=== PATIENT | female | born 1960 | race Hispanic/Latino ===

== ENCOUNTER 2018-07-12 23:12 | Day surgery (SDC) | payer SELFPAY ==
[2018-07-12 23:41] LABS: Bilirubin Negative (Negative); Blood, Urine Small (Negative); Clarity CLEAR (Clear); Glucose, Urine (Dipstick) Negative (Negative); Leukocyte Trace (Negative); Nitrite Negative (Negative); Protein, Urine (Dipstick) Negative (Neg-Trace); Specific Gravity, Urine 1.006 (1.002-1.036); Urobilinogen 0.2 mg/dL (0.2-1.0); pH, Urine 7.5 (5.0-9.0)
[2018-07-12 23:42] LABS: Specific Gravity 1.006 (1.002-1.036)
[2018-07-12 23:44] LABS: Bacteria/HPF None Seen HPF (None Seen); Hyaline Casts/LPF 0-3 HYALINE CAST LPF (0-3 Hyaline); Pregnancy Test - Urine (BHCG) Negative (Negative); Squamous Epithelial None Seen HPF (0-3); WBC/HPF 0-3 HPF (0-3)
[2018-07-12 23:45] LABS: Pregu Control Background? CLEAR/WHITE (CLR/WHITE); Pregu Control Bar Appear? YES (CONTROL BAR)
[2018-07-13 00:14] LABS: #Eosinphils 0.1 thou/uL (0.0-0.7); #Lymphocytes 2.1 thou/uL (1.20-3.40); #Monocytes 0.7 thou/uL (0.11-0.59); #Neutrophils 9.1 thou/uL (1.40-6.50); %Lymphocytes 17.1 % (21.0-51.0); Hemoglobin 13.6 g/dL (12.0-16.0); Mean Corpuscular HGB CONC 33.7 g/dL (32.0-36.0); Mean Corpuscular Hemoglobin 28.6 pg (27.0-31.0); Mean Corpuscular Volume 84.7 fL (78.0-98.0); Mean Platelet Volume 7.6 fL (7.4-10.4); Platelet Count 160 thou/uL (130-400); Red Blood Cell (RBC) Count 4.75 mill/uL (4.20-5.40)
[2018-07-13 00:34] LABS: ALT (SGPT) 25 U/L (8-55); AST (SGOT) 21 U/L (5-34); Albumin 4.3 g/dL (3.5-5.0); Alkaline Phosphatase 171 U/L (40-150); Anion Gap 11 mmol/L (10-20); BUN (Urea Nitrogen) 11 mg/dL (9.8-20.1); Bilirubin, Total 0.6 mg/dL (0.2-1.2); Calc. Creatinine Clearance 0 mL/min (70-130); Calcium 9.2 mg/dL (7.8-10.44); Carbon Dioxide 26 mmol/L (22-29); Chloride 106 mmol/L (98-107); Estimated GFR-MDRD Greater than 90; Globulin 3.6 g/dL (2.4-3.5); Glucose 111 mg/dL (70-105); Potassium 3.5 mmol/L (3.5-5.1); Protein, Total 7.9 g/dL (6.0-8.3); Sodium 139 mmol/L (136-145)
[2018-07-13] MEDS ORDERED: Morphine 2 MG/ML SYRINGE ONE (03:44)
[2018-07-13] MEDS ORDERED: Sodium Chloride 0.9% 100 ML ONE (05:13)
[2018-07-13] MEDS ORDERED: Piperacillin/Tazobactam 3.375 GM VIAL ONE (05:13)
[2018-07-13] MEDS ORDERED: Ondansetron HCl/PF 4 MG/2 ML Vial ONE ×2 (05:13→13:27)
[2018-07-13] MEDS ORDERED: Bupivacaine HCl 0.5%/Epinephrine 1:200,000/PF 30 ml Vial ONE (06:47)
[2018-07-13] MEDS ORDERED: Ketorolac Tromethamine 30 MG/ML VIAL ONE ×2 (07:26→09:17)
[2018-07-13] MEDS ORDERED: Scopolamine 1.5 mg/72 hour Patch ONE (07:26)
[2018-07-13] MEDS ORDERED: Fentanyl 100 MCG/2 ML VIAL ONE ×4 (07:30→09:54)
--- NOTE | 2018-07-13 07:35 | HP ---
HISTORY OF PRESENT ILLNESS: A 58-year-old female, multimedia developer housewife, disabled due to knee problems , Macedonian speaking only, who presents to the emergency room with right lower quadrant pain. She has been having pain intermittently for 3-4 weeks. This became exquisitely more severe. She presented t o the emergency room and noted to have a white count of 12, hemoglobin 13. Comprehensive metabolic p rofile is essentially normal. She underwent a CAT scan of the abdomen and pelvis revealing changes c onsistent with appendicitis. She received Zosyn, IV fluids. ALLERGIES: None. TOBACCO: None. ALCOHOL: None. MEDICATIONS: Antihypertensives. PAST SURGICAL HISTORY: C-sections, hysterectomy, BSO. PAST MEDICAL HISTORY: Hypertension. REVIEW OF SYSTEMS: Ten point noncontributory. FAMILY HISTORY: Noncontributory. PHYSICAL EXAMINATION: VITAL SIGNS: Blood pressure 140/74, heart rate 76, respiratory rate 18. HEENT: Unremarkable. LUNGS: Clear to auscultation. CARDIAC: Regular rate and rhythm without murmur or gallop. ABDOMEN: Soft, tenderness in right lower quadrant with guarding, rebound. Mild tenderness in left l ower quadrant. Positive Rovsing. EXTREMITIES: Unremarkable. No ankle edema. LABORATORY: As noted above. ASSESSMENT AND PLAN: Acute appendicitis. I have recommended laparoscopic video appendectomy. Risk of infection, bleeding, visceral injury were explained. Possible open procedure, possible transfusio n discussed. She understands the risks and benefits. Questions answered.
--- NOTE | 2018-07-13 07:50 | CT ---
PRELIMINARY REPORT/[facility]/EMERGENTY AFTER-HOURS PROCEDURE Addendum created by Josiah Tello MD on 07/13/2018 4:57 AM Central Time ([place] & [place]) THIS REPORT CONTAINS FINDINGS THAT MAY BE CRITICAL TO PATIENT CARE. The findings were verbally commun icated via telephone conference with Dr. Mcintyre at 4:47 AM CDT on 07/13/2018. The findings were ac knowledged and understood. Initial Report created on 07/13/2018 4:33 AM Central Time ([place] & [place]) CT Abdomen and Pelvis With Intravenous Contrast EXAM DATE/TIME: 07/13/2018 3:11 AM CLINICAL HISTORY: 58 years old, female; Pain; Abdominal pain; Generalized; Patient HX: This is a 58 yo f who comes in c [facility] of diffuse abdominal pain. She states the pain has been going on for about 3 weeks and has got acutely worse last night. She states the pain is made worse with any sort of movement and improves somewhat with rest. She has tried otc medicines which have not helped. She was treated for u ti with amoxicillin 5 days ago. The pain is described as knife like starting suprapubic and radiating . She has had c/s x4 and a total hysterectomy 11 years ago. She denies burning/blood with urination or discharge. She states she has felt hot for the last few days and had sweats. TECHNIQUE: Axial computed tomography images of the abdomen and pelvis with intravenous contrast. Coronal reformatted images were created and reviewed. COMPARISON: No relevant prior studies available. FINDINGS: Lower thorax: Mild dependent atelectasis. Triangular 3-4 mm nodular density along the right minor fis sure. ABDOMEN: Liver: Hepatic attenuation suggesting steatosis. Gallbladder and bile ducts: Unremarkable. Pancreas: Normal. Spleen: Normal. Adrenals: Normal. Kidneys and ureters: Normal. Stomach and bowel: Unremarkable. No obstruction. Appendix: Dilated fluid-filled appendix with fecaliths and periappendiceal fat stranding. PELVIS: Bladder: Unremarkable as visualized. Reproductive: Unremarkable as visualized. ABDOMEN and PELVIS: Intraperitoneal space: No free air. No significant fluid collection. Bones/joints: No acute fracture. No dislocation. Soft tissues: Unremarkable. Vasculature: Unremarkable. Lymph nodes: Several borderline to mildly enlarged ileocolic lymph nodes measuring up to 1 cm short a xis. IMPRESSION: Appendicitis as above. Thank you for allowing us to participate in the care of your patient. Dictated and Authenticated by: Josiah Tello MD 07/13/2018 4:33 AM Central Time ([place] & [place]) CT ABDOMEN AND PELVIS WITH IV CONTRAST: Date: 07-13-18 Performed on emergency basis at 0313 hours. History: Abdominal pain. FINDINGS: I agree with the preliminary report by Dr. Tello from [facility]. Acute appendicitis. Code QA POS: [facility]
[2018-07-13] MEDS ORDERED: Meperidine HCl/PF 25 MG/ML VIAL ONE (09:17)
--- NOTE | 2018-07-13 09:53 | OP ---
DATE OF PROCEDURE: 07/13/2018 PREOPERATIVE DIAGNOSIS: Acute appendicitis with chronic symptoms for 3 weeks. POSTOPERATIVE DIAGNOSES: 1. Acute appendicitis with chronic symptoms for 3 weeks. 2. Fullness at resected specimen, await pathology. SURGEON: Dr. Escobar Díaz ANESTHESIA: General. Local 0.5% Marcaine with epinephrine, 30 mL. PROCEDURE: Laparoscopic video appendectomy. PROCEDURE: The patient was taken to the operating room under general anesthesia, Aburto catheter plac ed of the beginning of the procedure. The abdomen was prepared with ChloraPrep, draped in routine fa shion. Local anesthetic infiltrated in the skin and subcutaneous tissue about each port site. Infra umbilical incision made. Pneumoperitoneum to 15 mmHg obtained with the Veress needle placing with a 5 port. Right lateral subcostal incision made and a [address] Suprapubic incision made and 12 p ort placed under laparoscopic visualization. Mesoappendix was taken down with the LigaSure device to the stump of the appendix. The stump of the appendix was indurated and terminal ileum carefully stacia ntified and stump of the appendix divided with three fires of the NADINE Endo blue load stapler. Append ix placed in Endobag and removed. The appendiceal stump had a very indurated mass-like effect. The resected specimen at the cecum, Staple line looked healthy. Good hemostasis ensured. Irrigant and pneumoperitoneum, used and good hemostasis ensured. Suprapubic fascia approximated with [id number] ght suture of 0 Vicryl on a GraNee needle. Irrigant and pneumoperitoneum evacuated. All instruments removed and all skin incisions approximated with interrupted subdermal 4-0 Monocryl and DermaGlue ap plied.
[2018-07-13] MEDS ORDERED: Promethazine HCl 25 MG/ML VIAL ONE (10:27)
[2018-07-13] MEDS ORDERED: ISOVUE-370 76%-LOCM 1 ML ONE (10:47)
[2018-07-13] MEDS ORDERED: Lidocaine 1% PF 5 ML VIAL ONE (13:27)
[2018-07-13] MEDS ORDERED: Dexamethasone 20 MG/5 ML VIAL ONE (13:27)
[2018-07-13] MEDS ORDERED: Glycopyrrolate 0.2 MG/ML 5 ML SYRINGE ONE (13:27)
[2018-07-13] MEDS ORDERED: PROPOFOL 200 MG/20 ML VIAL ONE (13:27)
[2018-07-13] MEDS ORDERED: Succinylcholine Chloride 20 MG/ML 10 ml SYRINGE FS ONE (13:27)
[2018-07-13 21:45] LABS: Chlamydia by PCR Not Detected (NotDetected); GC by PCR Not Detected (NotDetected)
== END 2018-07-13 12:40 | disposition home or self-care (01) ==
LOC: EDBD 23:12 → ERS 23:12 → SDC 07-13 06:49
PROVIDERS: ATTEND Specialist
PROC: 0DTJ4ZZ Resection of Appendix, Percutaneous Endoscopic Approach (ICD-10-PCS; principal; 2018-07-13)
DX: K35.80 Unspecified acute appendicitis (principal); I10 Essential (primary) hypertension; Z79.899 Other long term (current) drug therapy
CPT/HCPCS: 36415; 74177; 80053; 81003; 81015; 81025; 83690; 85025; 87480; 87491; 87510; 87591; 87660; 88304; 93005; 96365; 96374; 96375; 96376; J0131; J0670; J1100; J1885; J2001; J2175; J2270; J2405; J2543; J2550; J2704; J3010; J7050

== ENCOUNTER 2019-03-21 10:01 | Emergency (ER) | payer OTHER, SELFPAY ==
[~2019-03-21 10:01] MED LIST: ISOVUE-370 76%-LOCM 1 ML ONE
[2019-03-21 11:05] LABS: #Basophils 0.1 thou/uL (0.0-0.2); #Eosinphils 0.1 thou/uL (0.0-0.7); #Lymphocytes 2.2 thou/uL (1.20-3.40); #Monocytes 0.6 thou/uL (0.11-0.59); #Neutrophils 4.6 thou/uL (1.40-6.50); %Basophils 0.7 % (0.0-1.0); %Eosinophils 1.1 % (0.0-10.0); %Lymphocytes 29.3 % (21.0-51.0); %Monocytes 7.5 % (0.0-10.0); %Neutrophils 61.4 % (42.0-75.0); Hemoglobin 14.8 g/dL (12.0-16.0); Mean Corpuscular HGB CONC 35.2 g/dL (32.0-36.0); Mean Corpuscular Hemoglobin 29.4 pg (27.0-31.0); Mean Corpuscular Volume 83.6 fL (78.0-98.0); Mean Platelet Volume 7.7 fL (7.4-10.4); Platelet Count 171 thou/uL (130-400); RBC Distribution Width 12.4 % (11.5-14.5); Red Blood Cell (RBC) Count 5.04 mill/uL (4.20-5.40); White Blood Cell (WBC) Count 7.6 thou/uL (4.8-10.8)
[2019-03-21] MEDS ORDERED: Ondansetron PF 4 MG/2 ML Vial ONE (11:27)
[2019-03-21] MEDS ORDERED: Pantoprazole 40 MG VIAL ONE (11:27)
[2019-03-21 11:29] LABS: ALT (SGPT) 56 U/L (8-55); AST (SGOT) 37 U/L (5-34); Albumin 4.3 g/dL (3.5-5.0); Alkaline Phosphatase 173 U/L (40-150); Anion Gap 15 mmol/L (10-20); BUN (Urea Nitrogen) 17 mg/dL (9.8-20.1); Bilirubin, Total 0.3 mg/dL (0.2-1.2); Calc. Creatinine Clearance 0 mL/min (70-130); Calcium 9.3 mg/dL (7.8-10.44); Carbon Dioxide 20 mmol/L (22-29); Chloride 108 mmol/L (98-107); Estimated GFR-MDRD Greater than 90; Globulin 3.4 g/dL (2.4-3.5); Glucose 110 mg/dL (70-105); Lipase 33 U/L (8-78); Potassium 3.1 mmol/L (3.5-5.1); Protein, Total 7.7 g/dL (6.0-8.3); Sodium 140 mmol/L (136-145)
--- NOTE | 2019-03-21 11:33 | CT ---
CT abdomen and pelvis with IV contrast HISTORY: Abdominal pain. Vomiting. COMPARISON: 2 2017. FINDINGS: Tiny faint nodule at the right anterior lung base is stable. Solid organs of the abdomen is normal appearance. Postoperative changes of the cecum from prior appendectomy. Reactive appearing lymph nodes of the right lower quadrant are similar in appearance to the previous exam. Degenerative changes lumbar spine. IMPRESSION: Postoperative changes and other findings are stable. No evidence of bowel obstruction or inflammation.
[2019-03-21] MEDS ORDERED: Potassium Chloride 20 MEQ TAB ONE (12:57)
[2019-03-21 13:32] LABS: Bilirubin Negative (Negative); Blood, Urine Negative (Negative); Clarity CLEAR (Clear); Glucose, Urine (Dipstick) Negative (Negative); Leukocyte Negative (Negative); Nitrite Negative (Negative); Protein, Urine (Dipstick) Negative (Neg-Trace); Urobilinogen 0.2 mg/dL (0.2-1.0); pH, Urine 6.5 (5.0-9.0)
[2019-03-21 13:40] LABS: Specific Gravity, Urine Greater than 1.060 (1.002-1.036)
== END 2019-03-21 13:05 | disposition home or self-care (01) ==
LOC: ERS 10:01
DX: R10.9 Unspecified abdominal pain (principal); F32.9 Major depressive disorder, single episode, unspecified
CPT/HCPCS: 74177; 80053; 81003; 83690; 85025; 87086; 96361; 96372; 96374; 96375; C9113; J0500; J2405; Q9966

== ENCOUNTER 2020-10-01 07:13 | Day surgery (SDC) | payer MEDICARE ==
[2020-09-28 14:09] VITALS: BMI 36.2
[2020-10-01 07:41] LABS: PTT 29.8 sec (22.9-36.1); Prothrombin Time 13.5 sec (12.0-14.7)
[2020-10-01 07:42] LABS: Hemoglobin 13.7 g/dL (12.0-16.0); Mean Corpuscular HGB CONC 34.5 g/dL (32.0-36.0); Mean Corpuscular Hemoglobin 29.7 pg (27.0-31.0); Mean Corpuscular Volume 85.8 fL (78.0-98.0); Mean Platelet Volume 7.6 fL (7.4-10.4); Platelet Count 138 thou/uL (130-400); RBC Distribution Width 11.8 % (11.5-14.5); Red Blood Cell (RBC) Count 4.61 mill/uL (4.20-5.40); White Blood Cell (WBC) Count 7.4 thou/uL (4.8-10.8)
[2020-10-01] MEDS ORDERED: Midazolam HCl 2 mg/2 ml Vial ONE (08:11)
[2020-10-01] MEDS ORDERED: Lidocaine 1% PF 5 ML VIAL ONE (08:11)
[2020-10-01] MEDS ORDERED: Fentanyl 100 MCG/2 ML VIAL ONE (08:11)
[2020-10-01] MEDS ORDERED: Sodium Bicarbonate 2.5 MEQ/5 ML VIAL ONE (08:11)
[2020-10-01 08:57] LABS: Band 1 % (5-11); Eosinophils 1 % (0-10); Lymphocytes 29 % (21-51); MDiff Complete? YES; Monocytes 2 % (0-10); Neutrophil 66 % (42-75); RBC Morphology Normal; Reactive Lymphocytes 1 % (0-10)
--- NOTE | 2020-10-01 09:42 | ULT ---
Hepatic biopsy sonographic guided HISTORY: Epidural steatosis. Abnormal liver function tests. FINDINGS: After explaining the procedure and answering all questions, the anterior aspect of the abdo men was prepped and draped in usual sterile fashion. Sterile technique, buffered local anesthesia, sonographic guidance, and an anterior subxiphoid approa ch were used to carefully advance the tip of a 17-gauge trocar needle to the left liver lobe. A total of 2 18-gauge core specimens were obtained and eventually submitted to pathology for evaluation . Needle was removed and pressure held. Patient tolerated the procedure well and was returned to the holding area in good condition for further monitoring. IMPRESSION : Technically successful sonographic guided liver biopsy. Pathology pending.
[2020-10-01 09:57] VITALS: BP 155/64; TEMP 97.4
== END 2020-10-01 11:00 | disposition home or self-care (01) ==
LOC: ULT 07:13
PROVIDERS: ATTEND Physician Assistant Medical
PROC: 0FB23ZX Excision of Left Lobe Liver, Percutaneous Approach, Diagnostic (ICD-10-PCS; principal; 2020-10-01)
DX: K76.0 Fatty (change of) liver, not elsewhere classified (principal); R74.8 Abnormal levels of other serum enzymes; D69.6 Thrombocytopenia, unspecified; K59.00 Constipation, unspecified; R35.0 Frequency of micturition; I10 Essential (primary) hypertension; E78.00 Pure hypercholesterolemia, unspecified; E03.9 Hypothyroidism, unspecified; G50.0 Trigeminal neuralgia; F32.9 Major depressive disorder, single episode, unspecified; K21.9 Gastro-esophageal reflux disease without esophagitis; Z79.899 Other long term (current) drug therapy
CPT/HCPCS: 36415; 47000; 76942; 85025; 85610; 85730; 88307; 88313; J2250; J3010